=== PATIENT | male | born 1985 | race Two or more races ===

== ENCOUNTER 2019-08-25 07:43 | Emergency (ER) | payer OTHER ==
[~2019-08-25] VITALS: Ht 170.2 cm; Wt 68.0 kg
--- NOTE | 2019-08-25 07:50 | NUR ---
caty, medical clearance for OTB. Patient a/ox4, no distress noted, c/o back pain. Dr. Cannon at bedside for eval.
[2019-08-25 08:32] VITALS: BP 116/67
--- NOTE | 2019-08-25 08:33 | NUR ---
Patient discharged to home in stable condition. Written and verbal after care instructions given. Patient verbalizes understanding of instruction.
== END 2019-08-25 08:33 ==
LOC: ER 07:52
DX: G40.909 Epilepsy, unspecified, not intractable, without status epilepticus (principal); G89.29 Other chronic pain; M54.9 Dorsalgia, unspecified